=== PATIENT | female | born 1975 | race Caucasian/White ===

== ENCOUNTER 2017-07-12 14:43 | Emergency (ER) | payer MEDICAID, OTHER ==
[2017-07-12 14:53] VITALS: TEMP 98.1; O2SAT 98
--- NOTE | 2017-07-12 15:28 | C.PDOC ---
History Of Present Illness 42 year old female presents to the ED for evaluation left ear pain which began yesterday. Patient states she normally wears hearing aids in her bilateral ears. Patient also notes recent exacerbation of seasonal allergies. Notes sneezing and facial itching. Patient denies fever, chills, throat pain, cough. No difficulty breathing, no difficulty swallowing, no tongue swelling. Time Seen by Provider: 07/12/17 15:05 Chief Complaint (Nursing): ENT Problem History Per: Patient History/Exam Limitations: None Onset/Duration Of Symptoms: Hrs Current Symptoms Are (Timing): Still Present Quality (Ear): Pain W/Touch Past Medical History Reviewed: Historical Data, Nursing Documentation, Vital Signs Vital Signs: Last Vital Signs Temp 98.1 F 07/12/17 14:50 Pulse 84 07/12/17 15:44 Resp 16 07/12/17 15:44 BP 132/78 07/12/17 15:44 Pulse Ox 98 07/12/17 17:35 - Medical History PMH: Asthma, Back Problems, Hypercholesterolemia, Kidney Stones (20 years old), Chronic Kidney Disease Surgical History: Cholecystectomy - [facility] Procedures INJECT/INFUSE NEC (03/07/14) PSYCHIA INTERV/EVAL NEC (10/07/14) Family History: States: Unknown Family Hx - Social History Hx Tobacco Use: No Hx Alcohol Use: Yes Hx Substance Use: No - Immunization History Hx Tetanus Toxoid Vaccination: No Hx Influenza Vaccination: No Hx Pneumococcal Vaccination: No Review Of Systems Constitutional: Negative for: Fever, Chills ENT: Positive for: Ear Pain (left). Negative for: Throat Pain Respiratory: Negative for: Cough Physical Exam - Physical Exam Appears: Non-toxic, No Acute Distress Skin: Normal Color, Warm, Dry Head: Atraumatic, Normacephalic Eye(s): bilateral: Normal Inspection, PERRL, EOMI Ear(s): Left: Other ((+) exudate in canal with mild swelling, TTP to tragus, no mastoid tenderness), Right: Normal Nose: Normal, No Discharge Oral Mucosa: Moist Throat: Normal, No Erythema, No Exudate Neck: Normal ROM, Supple Chest: Symmetrical Cardiovascular: Rhythm Regular Respiratory: Normal Breath Sounds, No Accessory Muscle Use Extremity: Normal ROM, Capillary Refill (less than 2 seconds ) Neurological/Psych: Oriented x3, Normal Speech, Normal Cognition Gait: Steady ED Course And Treatment O2 Sat by Pulse Oximetry: 98 (on RA) Pulse Ox Interpretation: Normal Progress Note: Patient received Toradol IM. On reassessment, patient is resting comfortably, showing no signs of distress and reports an improvement in her symptoms. Patient is stable for discharge and is advised to follow up with her PMD within 1-2 days for further evaluation. Disposition - Disposition Referrals: Joseph Root MD [Staff Provider] - Disposition: HOME/ ROUTINE Disposition Time: 15:28 Condition: STABLE Additional Instructions: Follow up with primary medical doctor in 1-3 days without fail for further evaluation. Take medications as prescribed. Return to the emergency department at any time if symptoms persist or worsen. Prescriptions: Ketorolac Tromethamine [Toradol] 10 mg PO Q6 PRN #20 tab PRN Reason: Pain, Moderate (4-7) Loratadine/Pseudoephedrine [Loratadine-D 24 Hour 10 mg-240 mg] 1 t24 PO DAILY # 10 tab Neomycin/Polymyxin/Hydrocortis [Cortisporin Otic Susp] 4 drop OT TID #1 bottle Instructions: Otitis Externa (ED) Forms: [email or web address] (Armenian) - Clinical Impression Clinical Impression: Otitis externa - PA / ACCESS REPRESENTATIVE / Resident Statement MD/DO has reviewed & agrees with the documentation as recorded. - Scribe Statement The provider has reviewed the documentation as recorded by the Scribe (Elida Sylvester) All medical record entries made by the Scribe were at my direction and personally dictated by me. I have reviewed the chart and agree that the record accurately reflects my personal performance of the history, physical exam, medical decision making, and the department course for this patient. I have also personally directed, reviewed, and agree with the discharge instructions and disposition.
[2017-07-12 15:45] VITALS: BP 132/78; PULSE 84; RESP 16
== END 2017-07-12 15:44 | disposition home or self-care (01) ==
LOC: C.ER 14:43
DX: H60.92 Unspecified otitis externa, left ear (principal)
CPT/HCPCS: 96372; 99283; J1885

== ENCOUNTER 2017-07-13 11:30 | Emergency (ER) | payer OTHER ==
[2017-07-13 11:38] VITALS: RESP 18; TEMP 97.8
[2017-07-13 11:58] VITALS: BMI 27.4
[2017-07-13] MEDS ORDERED: Amoxicillin-Clav 875-125 mg Tab PO STA (12:11)
--- NOTE | 2017-07-13 12:15 | C.PDOC ---
History Of Present Illness 42 year old female presents to the ED for re-evaluation left sided facial pain, more around ear developed for past few days. Patient states she "normally wears hearing aids, ears felt itchy, and after I scratched, started to hurt my Left ear". Pt reports, pain is mostly localized in front of left ear, noted some mild swelling left lateral neck. Pt sts, was seen yesterday here in ED due to same complaints, received Rx: Toradol " unable to fill it up, pharmacy does not have it". Otherwise, pt denies fever, chills, headache, dizziness, vertigo, ear discharges, drooling, dysphagia, dyspnea, CP, SOB, cough, abd. pain, N/V, denies nay other active complaints. Ambulate to Ed for evaluation, not in any apparent distress. Time Seen by Provider: 07/13/17 11:46 Chief Complaint (Nursing): ENT Problem History Per: Patient History/Exam Limitations: None Onset/Duration Of Symptoms: Days Past Medical History Reviewed: Historical Data, Nursing Documentation, Vital Signs Vital Signs: Last Vital Signs Temp 97.8 F 07/13/17 11:32 Pulse 78 07/13/17 12:52 Resp 18 07/13/17 12:52 BP 126/75 07/13/17 12:52 Pulse Ox 99 07/13/17 12:52 - Medical History PMH: Asthma, Back Problems, Hypercholesterolemia, Kidney Stones (20 years old), Chronic Kidney Disease Surgical History: Cholecystectomy - [facility] Procedures INJECT/INFUSE NEC (03/07/14) PSYCHIA INTERV/EVAL NEC (10/07/14) Family History: States: No Known Family Hx - Social History Hx Tobacco Use: No Hx Alcohol Use: Yes Hx Substance Use: No - Immunization History Hx Tetanus Toxoid Vaccination: Yes Hx Influenza Vaccination: Yes Hx Pneumococcal Vaccination: Yes Review Of Systems Except As Marked, All Systems Reviewed And Found Negative. Constitutional: Positive for: Other ((+) Left sided facial pain). Negative for : Fever, Chills ENT: Positive for: Ear Pain (Left ). Negative for: Ear Discharge Cardiovascular: Negative for: Chest Pain Respiratory: Negative for: Cough, Shortness of Breath Gastrointestinal: Negative for: Nausea, Vomiting, Abdominal Pain Neurological: Negative for: Headache, Dizziness Physical Exam - Physical Exam Appears: Well, Non-toxic, No Acute Distress Skin: Normal Color, Warm, Dry, No Rash Eye(s): bilateral: PERRL Ear(s): Left: Other (mild ear canal edema with scant clear discharges, tenderness with pressure over tragus and singh pulling. NO mastoid tenderness, no edema, no erythema.), Right: Normal Nose: No Flaring, No Discharge Oral Mucosa: Moist, No Drooling Tongue: Normal Appearing Lips: Normal Appearing Throat: No Erythema, No Exudate, No Drooling Neck: Supple Extremity: Normal ROM, No Swelling Neurological/Psych: Oriented x3, Normal Speech ED Course And Treatment O2 Sat by Pulse Oximetry: 100 (RA) Pulse Ox Interpretation: Normal Progress Note: On re-evaluation, pt is afebrile, hemodynamicaly stable. Non- toxic. Tolerate Po well in ED. neck: Supple, (-) meningeal sign. ENT: exam c/ w Left otitis externa r/o otitis media. NO mastoid tenderness. Lungs: CTA B/L, BS equal B/L. ABd: benign. Neurologicaly intact. Records from yesterday visit review, pt received Rx: Loratadine, Toradol, abs otic drops. Pt advised on course of ds. ref. to F/u with ENT in 2 days for re-eavl. return to ED if any worsening or new changes. Medical Decision Making Medical Decision Making: PLAN: * Augmentin PO * Tramadol PO * Prednisone PO Disposition Counseled Patient/Family Regarding: Diagnosis, Need For Followup, Rx Given - Disposition Referrals: Joseph Root MD [Staff Provider] - Disposition: HOME/ ROUTINE Disposition Time: 12:17 Condition: STABLE Additional Instructions: Continue Loratadine Ear drops as need Take medication as prescribed today FOLLOW UP WITH ENT FOR FURTHER EVALUATION AND TREATMENT. RETURN IF ANY NEW CHANGES. Prescriptions: Amoxicillin/Clavulanate [Augmentin 875 MG-125 MG] 1 tab PO BID #14 tab Prednisone [Deltasone] 20 mg PO DAILY #3 tablet traMADol [Ultram] 50 mg PO TID #7 tab Instructions: Otitis Externa (ED), Trigeminal Neuralgia (ED) Forms: [employer] (Danish) - Clinical Impression Clinical Impression: Otitis externa, Trigeminal neuralgia - PA / MOLD COOLER / Resident Statement MD/DO has reviewed & agrees with the documentation as recorded. - Scribe Statement The provider has reviewed the documentation as recorded by the Nancyibe Anusha Mosqueda All medical record entries made by the Phyllis were at my direction and personally dictated by me. I have reviewed the chart and agree that the record accurately reflects my personal performance of the history, physical exam, medical decision making, and the department course for this patient. I have also personally directed, reviewed, and agree with the discharge instructions and disposition.
[2017-07-13] MEDS ORDERED: Amoxicillin-Clav 875-125 mg Tab PO ONE (12:42)
[2017-07-13 12:54] VITALS: BP 126/75; PULSE 78
[2017-07-13 14:42] VITALS: O2SAT 100
== END 2017-07-13 12:54 | disposition home or self-care (01) ==
LOC: C.ER 11:30
DX: G50.0 Trigeminal neuralgia (principal); H60.92 Unspecified otitis externa, left ear

== ENCOUNTER 2018-02-04 07:34 | Emergency (ER) | payer OTHER ==
[2018-02-04 07:34] VITALS: BMI 27.4
[2018-02-04] MEDS ORDERED: Lidocaine 5% Patch TD STA (08:21)
[2018-02-04] MEDS ORDERED: Lidocaine 5% Patch TD ONE (08:35)
--- NOTE | 2018-02-04 09:21 | C.PDOC ---
History Of Present Illness 42-year-old female, presents to the emergency department with complaints of back pain that started this morning upon waking up. Patient states she was working out and lifting weights at the gym yesterday. Patient notes she has experience with lifting. Pain is sharp and achy in nature, across lower back, radiating to right thigh and buttock. Patient is took dose of Tylenol this morning with no relief. Denies numbness/weakness, nausea/vomiting, bladder/ bowel incontinence, or any other associated symptoms. Time Seen by Provider: 02/04/18 07:53 Chief Complaint (Nursing): Back Pain History Per: Patient History/Exam Limitations: no limitations Onset/Duration Of Symptoms: Hrs Current Symptoms Are (Timing): Still Present Quality Of Discomfort: Sharp, Aching Severity: Moderate Past Medical History Reviewed: Historical Data, Nursing Documentation, Vital Signs Vital Signs: Last Vital Signs Temp 97.9 F 02/04/18 11:08 Pulse 62 02/04/18 11:08 Resp 18 02/04/18 11:08 BP 142/79 02/04/18 11:08 Pulse Ox 95 02/04/18 16:13 - Medical History PMH: Back Problems, Kidney Stones (20 years old), Chronic Kidney Disease Surgical History: Cholecystectomy - [facility] Procedures INJECT/INFUSE NEC (03/07/14) PSYCHIA INTERV/EVAL NEC (10/07/14) Family History: States: No Known Family Hx - Social History Hx Tobacco Use: No Hx Alcohol Use: Yes Hx Substance Use: No - Immunization History Hx Tetanus Toxoid Vaccination: Yes Hx Influenza Vaccination: Yes (2017) Hx Pneumococcal Vaccination: Yes Review Of Systems Genitourinary: Negative for: Incontinence Musculoskeletal: Positive for: Back Pain Neurological: Negative for: Weakness, Numbness Physical Exam - Physical Exam Appears: Non-toxic, No Acute Distress Skin: Normal Color, Warm, Dry, No Rash Head: Atraumatic, Normacephalic Eye(s): bilateral: Normal Inspection, PERRL, EOMI Nose: Normal Oral Mucosa: Moist Lips: Normal Appearing Neck: Normal ROM Chest: Symmetrical Cardiovascular: Rhythm Regular Respiratory: Normal Breath Sounds Back: Paraspinal Tenderness (tenderness across the paralumbar region) Extremity: Normal ROM, No Deformity, No Swelling Neurological/Psych: Oriented x3, Normal Speech Gait: Steady ED Course And Treatment O2 Sat by Pulse Oximetry: 95 (RA) Pulse Ox Interpretation: Normal Medical Decision Making Medical Decision Making: Impression: back pain Plan: * Lidoderm, Toradol, Valium * Urine preg [place] reviewed: 07/13/2017 TRAMADOL HCL 50 MG TABLET #7 0940 On re-eval patient still continues to have pain and asking for stronger pain medicine, states it is just mildly better 1030 On re-eval patient states pain is more bearable but still persists. Patient appears better and was sitting speaking with her and when I entered room she started complaining of pain again. I advised patient to apply heat rest and follow up with primary or pain management if the pain persists. She is stable for discharge Disposition Counseled Patient/Family Regarding: Diagnosis, Need For Followup, Rx Given - Disposition Referrals: Sue Leigh [Staff Provider] - Disposition: HOME/ ROUTINE Disposition Time: 10:00 Condition: GOOD Additional Instructions: Apply heat to area for 15-20 minutes at a time 2-3 times per day Take Motrin for pain every 6-8 hours as needed, with food to not upset stomach Take Tramadol for severe pain as needed every 12 hours Take Robaxin for muscle pain and spasm every 6-8 hours as needed, caution can cause drowsiness Follow up with your primary medical doctor or clinic in 2-5 days for further evaluation Return to the emergency department at any time if symptoms persist or worsen. Prescriptions: Ibuprofen [Motrin] 600 mg PO Q8 #30 tab Methocarbamol [Robaxin-750] 750 mg PO Q12 #10 tablet traMADol [Ultram] 50 mg PO Q12 PRN #6 tab PRN Reason: Pain, Severe (8-10) Instructions: Sciatica (DC) Forms: [facility] (Northern Irish), Work Excuse - POA Present On Arrival: None - Clinical Impression Clinical Impression: Sciatica, Low back strain - Scribe Statement The provider has reviewed the documentation as recorded by the Scribe (Francisco Maguire) All medical record entries made by the Scribe were at my direction and personally dictated by me. I have reviewed the chart and agree that the record accurately reflects my personal performance of the history, physical exam, medical decision making, and the department course for this patient. I have also personally directed, reviewed, and agree with the discharge instructions and disposition.
[2018-02-04 11:10] VITALS: BP 142/79; PULSE 62; RESP 18; TEMP 97.9
[2018-02-04 16:13] VITALS: O2SAT 95
== END 2018-02-04 11:12 | disposition home or self-care (01) ==
LOC: C.ER 07:34
DX: M54.31 Sciatica, right side (principal); S39.012A Strain of muscle, fascia and tendon of lower back, initial encounter; X50.0XXA Overexertion from strenuous movement or load, initial encounter; Y92.39 Other specified sports and athletic area as the place of occurrence of the external cause
CPT/HCPCS: 96372; 99283; J1885

== ENCOUNTER 2018-03-09 21:47 | Emergency (ER) | payer OTHER ==
[2018-03-09 21:48] VITALS: BMI 27.4
[2018-03-09 22:03] VITALS: BP 136/85; PULSE 68; RESP 20; TEMP 98.6; O2SAT 98
--- NOTE | 2018-03-09 22:34 | C.PDOC ---
History Of Present Illness 43 year old female presents to the ED for evaluation of scattered bug bites on her arms and legs. Patient reports she went camping last Friday and recently came back. Patient noticed the bug bites which are itchy. Patient denies fever, chills, nausea, vomit, diarrhea. Time Seen by Provider: 03/09/18 22:02 Chief Complaint (Nursing): Abnormal Skin Integrity History Per: Patient History/Exam Limitations: no limitations Onset/Duration Of Symptoms: Days Current Symptoms Are (Timing): Still Present Location Of Injury: Right: Arm, Leg, Left: Arm, Leg Quality Of Symptoms: Itching Recent travel outside of the [place]: No Additional History Per: Patient Past Medical History Reviewed: Historical Data, Nursing Documentation, Vital Signs Vital Signs: Last Vital Signs Temp 98.6 F 03/09/18 21:58 Pulse 68 03/09/18 21:58 Resp 20 03/09/18 21:58 BP 136/85 03/09/18 21:58 Pulse Ox 98 03/09/18 21:58 - Medical History PMH: Back Problems, Kidney Stones (20 years old), Chronic Kidney Disease Denies: Asthma, Hypercholesterolemia Surgical History: Cholecystectomy - [facility] Procedures INJECT/INFUSE NEC (03/07/14) PSYCHIA INTERV/EVAL NEC (10/07/14) Family History: States: Unknown Family Hx - Social History Hx Tobacco Use: No Hx Alcohol Use: Yes Hx Substance Use: No - Immunization History Hx Tetanus Toxoid Vaccination: No Hx Influenza Vaccination: Yes (2017) Hx Pneumococcal Vaccination: No Review Of Systems Constitutional: Negative for: Fever, Chills Cardiovascular: Negative for: Chest Pain Respiratory: Negative for: Cough, Shortness of Breath Gastrointestinal: Negative for: Nausea, Vomiting Skin: Positive for: Rash Neurological: Negative for: Weakness, Numbness Physical Exam - Physical Exam Appears: Non-toxic, No Acute Distress Skin: Warm, Dry, Other (scattered bug bites on Bilateral arms and legs with no cellulitic component, no erythema) Head: Atraumatic, Normacephalic Eye(s): bilateral: Normal Inspection Oral Mucosa: Moist Extremity: Normal ROM, No Tenderness, Capillary Refill (< 2 seconds), No Swelling Pulses: Left Dorsalis Pedis: Normal, Right Dorsalis Pedis: Normal Neurological/Psych: Oriented x3, Normal Speech Gait: Steady ED Course And Treatment O2 Sat by Pulse Oximetry: 98 (ON RA) Pulse Ox Interpretation: Normal Disposition - Disposition - PA / TEACHING PASTOR / Resident Statement MD/DO has reviewed & agrees with the documentation as recorded. - Scribe Statement The provider has reviewed the documentation as recorded by the Scribe
--- NOTE | 2018-03-09 22:34 | C.PDOC ---
History Of Present Illness 43 year old female presents to the ED for evaluation of scattered itchy bug bites to her arms and legs over 2 days. Patient reports she went camping this past Friday just came back today. Patient denies fever, chills, nausea, vomit, diarrhea. Time Seen by Provider: 03/09/18 22:02 Chief Complaint (Nursing): Abnormal Skin Integrity History Per: Patient History/Exam Limitations: no limitations Onset/Duration Of Symptoms: Days Current Symptoms Are (Timing): Still Present Location Of Injury: Right: Arm, Leg, Left: Arm, Leg Quality Of Symptoms: Itching Recent travel outside of the [place]: No Past Medical History Reviewed: Historical Data, Nursing Documentation, Vital Signs Vital Signs: Last Vital Signs Temp 98.6 F 03/09/18 21:58 Pulse 68 03/09/18 21:58 Resp 20 03/09/18 21:58 BP 136/85 03/09/18 21:58 Pulse Ox 98 03/09/18 22:45 - Medical History PMH: Back Problems, Kidney Stones (20 years old), Chronic Kidney Disease Denies: Asthma, Hypercholesterolemia Surgical [facility] [place] [facility] Procedures INJECT/INFUSE NEC (03/07/14) PSYCHIA INTERV/EVAL NEC (10/07/14) Family History: States: Unknown Family Hx - Social History Hx Tobacco Use: No Hx Alcohol Use: Yes Hx Substance Use: No - Immunization History Hx Tetanus Toxoid Vaccination: No Hx Influenza Vaccination: Yes (2017) Hx Pneumococcal Vaccination: No Review Of Systems Constitutional: Negative for: Fever, Chills Cardiovascular: Negative for: Chest Pain Respiratory: Negative for: Cough, Shortness of Breath Gastrointestinal: Negative for: Nausea, Vomiting Skin: Positive for: Rash Neurological: Negative for: Weakness, Numbness Physical Exam - Physical Exam Appears: Non-toxic, No Acute Distress Skin: Normal Color, Warm, Dry, Other (scattered bug bites on bilateral arms and legs. no cellulitic component, no erythema) Head: Atraumatic, Normacephalic Eye(s): bilateral: Normal Inspection Oral Mucosa: Moist Tongue: Normal Appearing, No Swelling Lips: Normal Appearing, No Swelling Neck: Normal ROM, Supple Chest: Symmetrical, No Tenderness Cardiovascular: Rhythm Regular Respiratory: Normal Breath Sounds, No Accessory Muscle Use Extremity: Normal ROM, No Tenderness, Capillary Refill (< 2 seconds), No Swelling Extremity: Bilateral: Atraumatic Pulses: Left Radial: Normal, Right Radial: Normal, Left Dorsalis Pedis: Normal, Right Dorsalis Pedis: Normal Neurological/Psych: Oriented x3, Normal Speech, Normal Motor Gait: Steady ED Course And Treatment O2 Sat by Pulse Oximetry: 98 (ON RA) Pulse Ox Interpretation: Normal Progress Note: Patient was prescribed some ointment for her bug bites. Patient was instructed not to scratch her bites for possibility of infection. Patient was also advised to follow up with PMD in 1-2 days. Disposition - Disposition Referrals: Sue Leigh [Staff Provider] - Disposition: HOME/ ROUTINE Disposition Time: 22:32 Condition: GOOD Additional Instructions: Apply Ice to the bites which will help the itching. Return if there is worsened pain or swelling. Prescriptions: Triamcinolone 0.1% [Triamcinolone 0.1% Cream] 0.1 gm TP BID PRN #1 tube PRN Reason: Itching / Pruritus Instructions: Insect Bites and Stings (DC) Forms: [employer] (Iranian) - Clinical Impression Clinical Impression: Insect bites - PA / CLIENT SUCCESS SPECIALIST / Resident Statement MD/DO has reviewed & agrees with the documentation as recorded. - Scribe Statement The provider has reviewed the documentation as recorded by the Scribe Gumaro Dooley All medical record entries made by the Nancyibeloy were at my direction and personally dictated by me. I have reviewed the chart and agree that the record accurately reflects my personal performance of the history, physical exam, medical decision making, and the department course for this patient. I have also personally directed, reviewed, and agree with the discharge instructions and disposition.
== END 2018-03-09 22:41 | disposition home or self-care (01) ==
LOC: C.ER 21:47
DX: S40.862A Insect bite (nonvenomous) of left upper arm, initial encounter (principal); S40.861A Insect bite (nonvenomous) of right upper arm, initial encounter; S80.862A Insect bite (nonvenomous), left lower leg, initial encounter; S80.861A Insect bite (nonvenomous), right lower leg, initial encounter; W57.XXXA Bitten or stung by nonvenomous insect and other nonvenomous arthropods, initial encounter

== ENCOUNTER 2018-09-05 13:41 | Emergency (ER) | payer MEDICAID ==
[2018-09-05 13:41] VITALS: BMI 27.4
[2018-09-05 14:11] VITALS: BP 148/76; RESP 18; TEMP 98.1; O2SAT 100
[2018-09-05] MEDS ORDERED: Amoxicillin-Clav 500-125 mg Tab PO STA (14:54)
[2018-09-05] MEDS ORDERED: Oxycodone/Acetaminophen 5/325 mg Tab PO STA (14:54)
[2018-09-05] MEDS ORDERED: Amoxicillin-Clav 875-125 mg Tab PO ONE (15:03)
[2018-09-05] MEDS ORDERED: Oxycodone/Acetaminophen 5/325 mg Tab ONE (15:03)
--- NOTE | 2018-09-05 15:52 | C.PDOC ---
History Of Present Illness 43 y/o female presents to ED complaining of left ear pain x5 days. Patient states she was seen in a clinic where they irrigated her ear but the pain has gotten worse. She denies any bleeding, discharge, hearing loss, or headache. Chief Complaint (Nursing): ENT Problem History Per: Patient History/Exam Limitations: None Onset/Duration Of Symptoms: Days Current Symptoms Are (Timing): Still Present Past Medical History Reviewed: Historical Data, Nursing Documentation, Vital Signs Vital Signs: Last Vital Signs Temp 98.1 F 09/05/18 14:09 Pulse 68 09/05/18 14:09 Resp 18 09/05/18 14:09 BP 148/76 09/05/18 14:09 Pulse Ox 100 09/05/18 14:09 - Medical History PMH: Back Problems, Kidney Stones (20 years old), Chronic Kidney Disease Denies: Asthma, Hypercholesterolemia Surgical History: Cholecystectomy - [facility] Procedures INJECT/INFUSE NEC (03/07/14) PSYCHIA INTERV/EVAL NEC (10/07/14) Family History: States: No Known Family Hx - Social History Hx Tobacco Use: No Hx Alcohol Use: Yes Hx Substance Use: No - Immunization History Hx Tetanus Toxoid Vaccination: No Hx Influenza Vaccination: Yes (2017) Hx Pneumococcal Vaccination: No Review Of Systems Except As Marked, All Systems Reviewed And Found Negative. Constitutional: Negative for: Fever ENT: Positive for: Ear Pain (left). Negative for: Ear Discharge Cardiovascular: Negative for: Chest Pain Respiratory: Negative for: Shortness of Breath Gastrointestinal: Negative for: Nausea, Vomiting Skin: Negative for: Rash Neurological: Negative for: Headache Physical Exam - Physical Exam Appears: Non-toxic, No Acute Distress Skin: Warm, Dry, No Rash Head: Tenderness (of left mastoid), No Swelling Eye(s): bilateral: Normal Inspection Ear(s): Left: Other (cerumen noted, external ear canal with swelling, left more than right) Oral Mucosa: Moist Throat: Normal, No Erythema, No Exudate Neck: Supple Extremity: Bilateral: Atraumatic, Normal Color And Temperature, Normal ROM Neurological/Psych: Oriented x3, Normal Speech Gait: Steady ED Course And Treatment O2 Sat by Pulse Oximetry: 100 (RA) Pulse Ox Interpretation: Normal - CT Scan/US CT IAC Other Rad Studies (CT/US): Read By Radiologist, Radiology Report Reviewed CT/US Interpretation: FINDINGS: RIGHT TEMPORAL BONE: RIGHT MIDDLE EAR: Normal. RIGHT INNER EAR: Cochlea: Normal. Semicircular canals: Normal. RIGHT MASTOID AIR CELLS: Normal. RIGHT INTERNAL AUDITORY CANAL: Normal. RIGHT EXTERNAL AUDITORY CANAL: Tiny amount of cerumen felt be present within the right external auditory canal. RIGHT VESTIBULAR AND COCHLEAR AQUEDUCT: Normal. OTHER FINDINGS: None. LEFT TEMPORAL BONE: LEFT MIDDLE EAR: Normal. LEFT INNER EAR: Cochlea: Normal. Semicircular canals: Normal. LEFT MASTOID AIR CELLS: Normal. LEFT INTERNAL AUDITORY CANAL: Normal. LEFT EXTERNAL AUDITORY CANAL: There is lobular-elliptical shaped soft tissue within the left external auditory canal which appears to abut the tympanic membrane and abutting the the malleus (questionably bowed medially).. Findings probably represent lobular cerumen however the possibility of a small cholesteatoma not excluded therefore correlation with direct visualization recommended. Soft tissue extends superiorly into the inferior margin of prostatic space as well. LEFT VESTIBULAR AND COCHLEAR AQUEDUCTS: Normal. OTHER FINDINGS: Minor mucosal thickening seen within both maxillary antra. Old fracture deformity left lamina papyracea with herniation of orbital fat medially through the defect occupying 2 with 3 collapsed left-sided ethmoid air cells. Frontal sinuses are underpneumatized/hypoplastic. IMPRESSION: There is lobular-elliptical shaped soft tissue within the left external auditory canal which appears to abut the tympanic membrane and abutting the the malleus (questionably bowed medially).. Findings probably represent lobular cerumen however the possibility of a small cholesteatoma not excluded therefore correlation with direct visualization recommended. Soft tissue extends superiorly into the inferior margin of prostatic space as well.. Mild mucosal thickening both maxillary antra. Old fracture left lamina papyracea as described above. Progress Note: CT scan of internal auditory canal ordered. Augmentin and percocet administered. On re-evaluation, patient is resting comfortably, to lerating PO, and is in no acute distress. Disposition - Disposition Referrals: Joseph Root MD [Staff Provider] - Disposition: HOME/ ROUTINE Disposition Time: 16:29 Condition: STABLE Additional Instructions: Follow up with ENT specialist within 1-2 days. Return to ED if feel worse. Prescriptions: Amoxicillin/Clavulanate [Augmentin 875 MG-125 MG] 1 tab PO BID #20 tab Neomycin/Polymyxin/Hydrocortis [Cortisporin Otic Susp] 3 drop TOP TID #1 bottle traMADol [Ultram] 50 mg PO Q6 #20 tab Instructions: Ear Wax Impaction, Outer Ear Infection Forms: [facility] (Swedish) - Clinical Impression Clinical Impression: Earache, Irritation of external ear canal, Excessive cerumen in left ear canal - PA / PATIENT ACCOUNT REPRESENTATIVE / Resident Statement MD/DO has reviewed & agrees with the documentation as recorded. - Scribe Statement The provider has reviewed the documentation as recorded by the Scribe Melanie Jeffery All medical record entries made by the Nancyibeloy were at my direction and personally dictated by me. I have reviewed the chart and agree that the record accurately reflects my personal performance of the history, physical exam, medical decision making, and the department course for this patient. I have also personally directed, reviewed, and agree with the discharge instructions and disposition.
--- NOTE | 2018-09-05 16:18 | CT ---
Date of service: 09/05/2018 PROCEDURE: CT OF THE TEMPORAL BONES WITHOUT CONTRAST HISTORY: Left earache with mastoid tenderness COMPARISON: None available. TECHNIQUE: High resolution axial images of the temporal bones were obtained. Coronal and sagittal reformats were generated. Radiation dose: Total exam DLP = 839.96 mGy-cm. This CT exam was performed using one or more of the following dose reduction techniques: Automated exposure control, adjustment of the mA and/or kV according to patient size, and/or use of iterative reconstruction technique. FINDINGS: RIGHT TEMPORAL BONE: RIGHT MIDDLE EAR: Normal. RIGHT INNER EAR: Cochlea: Normal. Semicircular canals: Normal. RIGHT MASTOID AIR CELLS: Normal. RIGHT INTERNAL AUDITORY CANAL: Normal. RIGHT EXTERNAL AUDITORY CANAL: Tiny amount of cerumen felt be present within the right external auditory canal RIGHT VESTIBULAR AND COCHLEAR AQUEDUCT: Normal. OTHER FINDINGS: None. LEFT TEMPORAL BONE: LEFT MIDDLE EAR: Normal. LEFT INNER EAR: Cochlea: Normal. Semicircular canals: Normal. LEFT MASTOID AIR CELLS: Normal. LEFT INTERNAL AUDITORY CANAL: Normal. LEFT EXTERNAL AUDITORY CANAL: There is lobular-elliptical shaped soft tissue within the left external auditory canal which appears to abut the tympanic membrane and abutting the the malleus (questionably bowed medially).. Findings probably represent lobular cerumen however the possibility of a small cholesteatoma not excluded therefore correlation with direct visualization recommended. Soft tissue extends superiorly into the inferior margin of prostatic space as well. LEFT VESTIBULAR AND COCHLEAR AQUEDUCTS: Normal. OTHER FINDINGS: Minor mucosal thickening seen within both maxillary antra. Old fracture deformity left lamina papyracea with herniation of orbital fat medially through the defect occupying 2 with 3 collapsed left-sided ethmoid air cells. Frontal sinuses are underpneumatized/hypoplastic. IMPRESSION: There is lobular-elliptical shaped soft tissue within the left external auditory canal which appears to abut the tympanic membrane and abutting the the malleus (questionably bowed medially).. Findings probably represent lobular cerumen however the possibility of a small cholesteatoma not excluded therefore correlation with direct visualization recommended. Soft tissue extends superiorly into the inferior margin of prostatic space as well.. Mild mucosal thickening both maxillary antra. Old fracture left lamina papyracea as described above.
[2018-09-05 16:43] VITALS: PULSE 88
== END 2018-09-05 16:43 | disposition home or self-care (01) ==
LOC: C.ER 13:41
DX: H61.22 Impacted cerumen, left ear (principal); H92.02 Otalgia, left ear